=== PATIENT | male | born 1955 | race Caucasian/White ===

== ENCOUNTER → 2017-01-09 | Outpatient (CLI) | payer OTHER | LOC: FIMAGING 09:51 | PROVIDERS: ATTEND Physician Assistant | DX: Z47.89 Encounter for other orthopedic aftercare (principal); Z98.1 Arthrodesis status ==

== ENCOUNTER 2017-05-30 19:45 | Inpatient (IN) | payer OTHER ==
--- NOTE | 2017-05-30 20:31 | EDPHY ---
General Narrative: CHIEF COMPLAINT: Fall from horse, headache, neck pain, wrist pain HISTORY OF PRESENT ILLNESS: Patient reports falling off a horse this afternoon. He landed on the left side of his head. There was a brief loss of consciousness. He has a headache and right-sided neck pain. He also has right wrist pain. All areas are mild-to- moderate. They are worse with movement palpation. He has no nausea or vomiting. No visual disturbance. No chest pain. No back pain. No abdominal pain. No pain in the left arm or the legs. No incontinence of bowel or bladder. No weakness of the lower extremities or upper extremities. Does a history of subdural hematoma last year. Also has a history of cervical discopathy status post laminectomy fusion. No other associated complaints or modifying factors. REVIEW OF SYSTEMS: Ten systems reviewed and are negative unless otherwise noted in the HPI PCP: Dr. Leach SPECIALISTS: Dr. Bolivar PAST MEDICAL HISTORY: Traumatic subdural hematoma, closed head injury, cervical discopathy PAST SURGICAL HISTORY: Cervical laminectomy and fusion 2015 SOCIAL HISTORY: Nonsmoker. No alcohol. No drug use. FAMILY HISTORY: Noncontributory EXAMINATION General Appearance: Alert, no distress Head: normocephalic, superficial abrasion to the left forehead. No Scott sign. No raccoon eyes. No depression. Eyes: Pupils equal and round, no conjunctival pallor or injection. EOMs intact ENT, Mouth: Mucous membranes moist airway patent Neck: C-collar in place. Trachea midline. Respiratory: Lungs are clear to auscultation. No wheeze, rhonchi or crackles Cardiovascular: Regular rate and rhythm. No murmur. Symmetric radial pulses 2 +. Symmetric DP pulses 2+ Gastrointestinal: Abdomen is soft and nontender. No tympany. No rigidity. No distention. No CVA tenderness. Back: No midline tenderness at any level. No crepitus. No step-off. No deformity. Range of motion intact Neurological: GCS 15. Cranial nerves 2-12 grossly intact. A&O, nonfocal, strength is symmetric. Patellar reflexes symmetric. No pronator drift. Normal mental status Skin: Warm and dry, no rash. Superficial abrasion to left forehead. No laceration. Extremities: Tenderness of the right wrist excluding the anatomic snuffbox. No tenderness of the right shoulder, elbow or hand. Range of motion is symmetric in the upper extremities. No bony tenderness of the lower extremities. Range of motion is symmetric in lower extremities. Psychiatric: Mood and affect normal DIFFERENTIAL DIAGNOSES: Including but not limited to closed head injury, subdural hematoma, parenchymal hemorrhage, skull fracture, sprain, strain, contusion, dislocation MDM: 8:31 p.m. Fall from horse with brief loss of consciousness. He does have a headache and right-sided neck pain. C-collar was left in place during my examination. I have ordered CT scans of the head cervical spine. I have ordered chest x-ray and x-ray of the right wrist. He is in no acute distress. Vital signs are stable. He appears to be mentating appropriately. Spouse is not currently bedside but will return shortly. 9:04 p.m. Notified by radiology equipment servicer that there is a C1 fracture. I have reviewed this with Dr. Maya. Neurosurgery will be page. 9:07 p.m. Patient re-evaluated. He just returned from CT scan. We stressed the importance of him holding still not turn his head or neck. He remains neuro intact with complaints of a mild wound "weird sensation" in the left hand I cannot find focally. Will discuss with Trauma surgery, Neurosurgery. Plain films pending. 9:15 a.m. Case discussed with neurosurgeon Dr. Ochoa. We discussed the patient's history and CT scan findings as he is established with him. He will review the scan and call me back. 9:16 p.m. Case discussed with radiologist Dr. Dunaway. There is anterior ring fracture on C1. No 2nd fracture identified. No involvement of the vertebral foramina. 9:20 p.m. Case discussed with trauma surgeon Dr. Yu. He will admit the patient to his service. He will come evaluate the patient in the emergency department. He is requesting orthopedic consultation as the plain film of the wrist shows a distal radius fracture. 9:25 p.m. Case discussed with neurosurgeon Dr. Ochoa. He would like the patient placed in a rigid C-collar from [facility]. He would like an MRI of the cervical spine ordered without contrast. He would like to be notified if there are any abnormalities of the MRI other than the fracture. He requests Q4 neuro checks. He informs me that he will likely see the patient 1st thing in the morning unless there are changes or further abnormality on the MRI. Prescription has been faxed for the C-collar. 10:30 p.m. Patient has been evaluated here in the emergency department by neurosurgeon. He has been evaluated and admitted by trauma surgeon. Orthopedics has been contacted. Dr. Denney recommends sugar-tong splint and he will see the patient in consult tomorrow. I have re-evaluated the patient multiple times within the past hour. He remains neuro intact. C-collar order by Jair has been clarified, and Vidal Mcclure will bring the appropriate C-collar to the emergency department. 11:00 p.m. [place] rigid [place] J C-collar has been placed by [facility]. He remains neuro intact and feeling much more comfortable in this collar pain 11:[address] Dunaway. MRI of the cervical spine reveals no other findings other than the anterior ring fracture of C1. I have re-evaluated the patient. I informed the patient and his spouse of this. They were comforted to hear this. He remains neuro intact at this time. He will be transported to his bed shortly. - Diagnostics Imaging Results: Imaging Impressions Cervical Spine CT 05/30/17 20:32 Impression: 1. C1 ring fracture. Please see the cervical spine CT report. 2. No acute posttraumatic intracranial abnormality identified. 3. No recurrent subdural hematoma. 2. CT Cervical Spine Without Contrast, 20:53 History: Trauma. Fall off horse. Neck pain. History of cervical fusion surgery. Comparison: MRI cervical spine October 22, 2015 Technique: Multislice helical CT through the cervical spine without contrast from the skull base to T1. Soft tissue and bone evaluation is performed. Sagittal and coronal reconstructions are obtained and reviewed. Dose reduction techniques were utilized. Findings: Cervical alignment is anatomic. There is a solitary fracture of the anterior right C1 ring, that extends vertically through the anterior third of the C1 articular pillar. No dislocation is identified. The relationship between skull base and C1 is normal. Occipital condyles are intact. The C1-C2 articulation is normally aligned, but osteoarthritic. The odontoid process is intact. There is anterior spur fusion between C3 and C6. There is no evidence for fusion disruption. There is hypertrophic spurring present involving the posterior superior corner of C4. There is degenerative disk space narrowing at C6-C7, where the disk space is fused. Facet joints are normally aligned. The cervical thoracic junction is normally aligned. Soft tissue window evaluation does not show evidence of epidural or prevertebral hematoma, although there is obscuration related to the orthopedic hardware.. Impression: Right C1 fracture. Retained anatomic alignment. Results discussed with Nitin Quintero at 9:15 PM. Final results are concordant with the initial interpretation. General information for patients regarding this examination can be found at [employer]. If you have questions or comments about this report, please contact me at (hospital) or [phone] (cell). Chest X-Ray 05/30/17 20:32 Impression: Indeterminate age anterior rib buckling. Correlation with any rib cage symptoms is recommended. Otherwise negative. Head CT 05/30/17 20:32 Impression: 1. C1 ring fracture. Please see the cervical spine CT report. 2. No acute posttraumatic intracranial abnormality identified. 3. No recurrent subdural hematoma. 2. CT Cervical Spine Without Contrast, 20:53 History: Trauma. Fall off horse. Neck pain. History of cervical fusion surgery. Comparison: MRI cervical spine October 22, 2015 Technique: Multislice helical CT through the cervical spine without contrast from the skull base to T1. Soft tissue and bone evaluation is performed. Sagittal and coronal reconstructions are obtained and reviewed. Dose reduction techniques were utilized. Findings: Cervical alignment is anatomic. There is a solitary fracture of the anterior right C1 ring, that extends vertically through the anterior third of the C1 articular pillar. No dislocation is identified. The relationship between skull base and C1 is normal. Occipital condyles are intact. The C1-C2 articulation is normally aligned, but osteoarthritic. The odontoid process is intact. There is anterior spur fusion between C3 and C6. There is no evidence for fusion disruption. There is hypertrophic spurring present involving the posterior superior corner of C4. There is degenerative disk space narrowing at C6-C7, where the disk space is fused. Facet joints are normally aligned. The cervical thoracic junction is normally aligned. Soft tissue window evaluation does not show evidence of epidural or prevertebral hematoma, although there is obscuration related to the orthopedic hardware.. Impression: Right C1 fracture. Retained anatomic alignment. Results discussed with Nitin Quintero at 9:15 PM. Final results are concordant with the initial interpretation. General information for patients regarding this examination can be found at [email or web address]. If you have questions or comments about this report, please contact me at [phone] (hospital) or [phone] (cell). Wrist X-Ray 05/30/17 20:32 Impression: Colles' fracture with intra-articular component. - History Smoking Status: Never smoked - Objective Vital Signs: Initial Vital Signs Temperature (C) 98.1 F 05/30/17 19:48 Heart Rate 82 05/30/17 19:48 Respiratory Rate 18 05/30/17 19:48 Blood Pressure 150/115 H 05/30/17 19:48 O2 Sat (%) 95 05/30/17 19:48 O2 Delivery Mode Room Air Allergies/Adverse Reactions: No Known Allergies Allergy (Verified 01/13/16 10:09) Home Medications: Medication Instructions Recorded Modafinil [Provigil] 200 mg PO MOTUWETHFR@09 05/30/17 Phospserin/[place]-3/Dha/Epa 1 each PO DAILY 05/30/17 [Vayacog Capsules] Medications Given: Discontinued Medications Lorazepam (Ativan Injection) 0.5 mg IVP EDNOW ONE Stop: 05/30/17 21:31 Last Admin: 05/30/17 21:39 Dose: 0.5 mg Departure - Departure Disposition: [facility] Acute Clinical Impression: C1 cervical fracture Qualifiers: Encounter type: initial encounter Fracture type: closed Fracture morphology: burst- stable Qualified Code(s): S12.01XA - Stable burst fracture of first cervical vertebra, initial encounter for closed fracture Condition: Good
[2017-05-30] MEDS ORDERED: LORazepam 2 MG/ML INJ IVP ONE (21:30)
[2017-05-30] MEDS ORDERED: LORazepam 2 MG/ML INJ ONE (21:33)
[2017-05-30 21:38] LABS: % IMMATURE GRANULYOCYTES 0.3 % (0.0-1.1); ABSOLUTE IMMATURE GRANULOCYTES 0.03 10^3/uL (0.00-0.10); ADD DIFF? NO; ADD MORPH? NO; ADD SCAN? NO; ATYPICAL LYMPHOCYTE FLAG 0 (0-99); FRAGMENT RBC FLAG 0 (0-99); HEMATOCRIT 46.4 % (40.0-51.0); HEMOGLOBIN 15.9 g/dL (13.7-17.5); LEFT SHIFT FLG 0 (0-99); LIPEMIA HEMOLYSIS FLAG 90 (0-99); MEAN CELL HEMOGLOBIN 28.8 pg (27.9-34.1); MEAN CELL HEMOGLOBIN CONCENTR. 34.3 g/dL (32.4-36.7); MEAN CELL VOLUME 83.9 fL (81.5-99.8); MEAN PLATELET VOLUME 9.5 fL (8.7-11.7); PLATELET CLUMPS FLAG 10 (0-99); PLATELET COUNT 218 10^3/uL (150-400); RED BLOOD CELL COUNT 5.53 10^6/uL (4.40-6.38); RED CELL DISTRIBUTION WIDTH 13.2 % (11.5-15.2)
[2017-05-30 21:50] LABS: APTT 26.3 SEC (23.0-38.0)
[2017-05-30 21:58] LABS: ANION GAP 13 mEq/L (8-16); CALCIUM 9.5 mg/dL (8.5-10.4); CARBON DIOXIDE 24 mEq/l (22-31); CHLORIDE 103 mEq/L (97-110); CREATININE 0.8 mg/dL (0.7-1.3); GLOMERULAR FILTRATION RATE > 60; GLUCOSE 106 mg/dL (70-100); SODIUM 140 mEq/L (134-144)
[2017-05-30 22:00] LABS: INR 0.98 (0.83-1.16); PROTIME(PATIENT) 12.9 SEC (12.0-15.0)
[2017-05-30] MEDS ORDERED: ONDANSETRON 4 MG/2 ML VIAL IVP PRN (22:01)
[2017-05-30] MEDS ORDERED: HYDROmorphone HCL/NS/PF 0.4 MG/2 ML SYR IVP PRN (22:01)
[2017-05-30] MEDS ORDERED: D5W 1/2 NS 1,000 ML IV SCH (22:15)
--- NOTE | 2017-05-30 23:13 | GHP ---
[f rep st] HISTORY AND PHYSICAL DATE OF ADMISSION: 05/30/2017 CHIEF COMPLAINT: Fall from horse. HISTORY OF PRESENT ILLNESS: This is a 62-year-old male who arrives to the emergency department via private vehicle after falling from his horse. 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 His subsequently brought him to the emergency department. Here, in the emergency department he is complaining of right-sided neck pain and right wrist pain, but is otherwise completely neuro intact and without complaint. He is protecting his airway. He is breathing appropriately and his circulation appears intact to all 4 extremities. Briefly, the patient is status post craniotomy in August of 2015 for a subdural after a similar incident after being bucked off a horse. He also is status post anterior cervical fusion of C3 through C6 for chronic cervical stenosis. PAST MEDICAL HISTORY: Cervical stenosis and osteoarthritis as well as hypertension. PAST SURGICAL HISTORY: Bilateral knee arthroscopies, craniotomy for subdural evacuation, and anterior cervical disk fusion C3 through C6. CURRENT MEDICATIONS: Include modafinil and some [id number] neurologic supplement. ALLERGIES: None. FAMILY HISTORY: Noncontributory. SOCIAL HISTORY: On disability from his head injury in 2014. Lives with his . No children. Denies illicit drug use. REVIEW OF SYSTEMS: A full 10-point review was performed and unless stated above , is otherwise negative. PHYSICAL EXAM: VITAL SIGNS: Temperature 36.7, blood pressure 148/103, heart rate 76, and he is 94% on room air. CONSTITUTIONAL: He is in no apparent distress. He is a little anxious but he appears comfortable. EYES: His pupils are equal, round, and reactive to light and accommodation. He has anicteric sclerae with normal extraocular movements. EARS, NOSE, MOUTH, AND THROAT: He has moist mucous membranes. His hearing is normal. He has poor dentition. CARDIOVASCULAR: He is hypertensive with a regular rate and rhythm without murmurs. RESPIRATORY: No respiratory distress. No rales or rhonchi. He is otherwise clear to auscultation without chest tenderness or crepitus. GI : He has normoactive bowel sounds. Abdomen is soft, nondistended, nontender. SKIN: Warm, normal color. No rashes. Abrasions almost throughout his whole body which all appear old. No fluctuance or induration. MUSCULOSKELETAL: He has full muscle strength without tenderness with normal joint range of motion. NEUROLOGIC: He is alert and oriented x3. His cranial nerves 2-12 are intact. He has no weakness, no numbness, and no asterixis. PSYCH: He is interacting appropriately. He is anxious. He is not encephalopathic. His thought process is linear. LYMPH/HEME/IMMUNOLOGIC: He has no cervical, groin or supraclavicular lymphadenopathy appreciated. LABS: Leukocytosis to 11,000. H and H stable. Coags pending, but his PTT is unremarkable. Chemistry at this time is pending. IMAGING: Includes a chest x-ray, a head CT, a C-spine CT, and a wrist x-ray. All these images were personally reviewed. The significant findings include a C1 ring fracture which appears nondisplaced, and a distal radius Colles fracture of the right wrist. ASSESSMENT/PLAN: 62-year-old male, status post fall off horse with C1 ring fracture and distal radius fracture. The patient is completely neuro intact and otherwise stable in the trauma bay. At this point in time, he will subsequently be admitted to the trauma service for monitoring. He has received neurosurgical consultation who evaluated him in the emergency department, as well as orthopedic consultation who will evaluate his right wrist fracture. Will continue to monitor as needed. /[id number]/MODL MTDD
[2017-05-31] MEDS: HYDROCODONE/APAP 5/325 TAB PO PRN ×4 (00:05→22:33)
[2017-05-31] MEDS: DIAZEPAM 5 MG TAB PO PRN ×2 (00:06→22:38)
--- NOTE | 2017-05-31 04:14 | GCON ---
[f rep st] CONSULTATION DATE OF CONSULTATION: 05/30/2017 REASON FOR CONSULTATION: C1 anterior ring fracture, status post fall. HISTORY OF PRESENT ILLNESS: Please note, the patient was seen in the emergency department at [facility] at approximately 9:40 p.m. This is a 62-year-old gentleman, who is well known to me from a prior traumatic brain injury and neck fusion, who states this evening he was riding his horse at the arena when he was suddenly bucked. Leeann guzman was wearing a helmet. His , who accompanies him to the emergency department this evening, did witness this injury, and there was questionable loss of consciousness, but by the time she arrived to the patient's side, he was awake and talking and alert. He was complaining of some right-sided neck pain. No new neurological deficits. He does have some baseline tingling and numbness in his hands from his prior spinal stenosis; however, it is uncertain as to whether this is new or not from his ba seline. He does have a traumatic brain injury. No new shooting pain in the arms or legs. No loss o f bowel or bladder function. He is otherwise very comfortable. No associated headaches or nausea. No diplopia or visual deficits. Denies any chest pain. REVIEW OF SYSTEMS: Complete 10-point Review of Systems from the patient's intake form reviewed by me significant only for those noted above in the HPI. PAST MEDICAL HISTORY: 1. Traumatic subdural hematoma with closed head injury. 2. Cervical stenosis and spondylosis. PAST SURGICAL HISTORY: Anterior cervical diskectomy and fusion C3 through C6 in 2016. SOCIAL HISTORY: The patient is a nonsmoker. Denies any tobacco, alcohol, or other drug use. He is currently on disability from his prior subdural hematoma. FAMILY HISTORY: Negative for any aneurysms. ALLERGIES: No known drug allergies. MEDICATIONS: 1. Tylenol 325 to 650 mg p.o. q.4 hours p.r.n. 2. Modafinil. PHYSICAL EXAMINATION: VITAL SIGNS: Temp is 98.1, heart rate is 82, respiratory rate is 18, blood pr essure is 150/115, saturating 95% currently on room air. GENERAL: Patient is lying in the gurney in a rigid cervical collar with his neck immobilized. HEENT: His head is atraumatic, normocephalic. He is in a rigid cervical collar. Otherwise appears to have appropriate mentation and affect. He john s a small superficial abrasion to the left forehead. Eyes: Pupils are equal, round, and reactive to light bilaterally. Extraocular movements are intact. ENT: Oral mucosa is moist. He has poor dent ition. CARDIOVASCULAR: Deferred. PULMONARY: Deferred. 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 Sensory exam: He has intact sensation to light t ouch throughout all major dermatomes of bilateral upper and lower extremities throughout. Other: He has no Padgett's on the left. Cranial nerves 2-12 appear to be intact. His pupils are equal, round , and reactive to light bilaterally. His extraocular movements are intact. His face is symmetric. Tongue protrudes midline. His palate and uvula elevate symmetrically. He has intact sensation to li ght touch to his face bilaterally, and shoulder shrug is symmetric. He has intact hearing to light c onversation. GCS score of 15. MEDICAL DECISION MAKING: Patient underwent a head CT without contrast completed on May at 8:32 p.m., as well as a cervical spine CT completed at same time and both reviewed by me on the [facility] PACS system. CT of the brain demonstrates no evidence of any midline shif t, mass effect, hydrocephalus, or hemorrhages. There is stable right parietal bone flap in excellent position. No pneumocephalus. Cervical spine CT demonstrates solitary fracture of the anterior righ t ring that extends vertically to the anterior third of the C1 articular pillar with no dislocation. The overall alignment between the skull base, C1, and occipital condyles is intact, as well as the C 1-C2 articulation. Odontoid process is intact. There is anterior cervical fusion hardware between C 3 and C6 with no significant hardware malfunction. ASSESSMENT AND PLAN: The patient is a 62-year-old gentleman, status post prior subdural hematoma wit h evacuation and C3-C6 cervical fusion in 2014 for which he has done otherwise quite well but present s this evening after a fall from a horse with uncertain loss of consciousness. He appears to be neur ologically intact and has a right-sided anterior C1 ring fracture which is nondisplaced in nature. I discussed the treatment options with the patient and his this evening and explained to them binta t likely we can treat this with a rigid cervical collar and immobilization for 3 months. Other treat ment options include halo versus cervical fusion. They are in agreement with the plan for a rigid im mobilization in a cervical collar for now. However, we will obtain a cervical spine MRI scan and fuad ce him in the step-down unit with q.2 hours neuro checks this evening. It is unlikely that he is goi ng to require surgical intervention for this at the moment, and therefore activity can be ad carson exce pt for the rigid cervical collar immobilization and they can allow him to eat. I have discussed with the trauma surgeon and the ER physician, who are both in agreement. All questions were answered. /[id number]/MODL
[2017-05-31] MEDS: IBUPROFEN 600 MG TAB PO SCH ×2 (04:54→14:59)
[2017-05-31 05:02] LABS: HEMATOCRIT 44.3 % (40.0-51.0); HEMOGLOBIN 15.4 g/dL (13.7-17.5); MEAN CELL HEMOGLOBIN 29.4 pg (27.9-34.1); MEAN CELL HEMOGLOBIN CONCENTR. 34.8 g/dL (32.4-36.7); MEAN CELL VOLUME 84.7 fL (81.5-99.8); RED BLOOD CELL COUNT 5.23 10^6/uL (4.40-6.38); RED CELL DISTRIBUTION WIDTH 13.4 % (11.5-15.2)
[2017-05-31 05:33] LABS: ANION GAP 10 mEq/L (8-16); CALCIUM 8.7 mg/dL (8.5-10.4); CARBON DIOXIDE 27 mEq/l (22-31); CHLORIDE 106 mEq/L (97-110); CREATININE 0.7 mg/dL (0.7-1.3); GLOMERULAR FILTRATION RATE > 60; GLUCOSE 108 mg/dL (70-100); POTASSIUM 3.6 mEq/L (3.5-5.2); SODIUM 143 mEq/L (134-144)
--- NOTE | 2017-05-31 07:22 | NEUSURGPN ---
Assessment/Plan: Assessment: 62 yo male that is admitted to trauma with neck and UE injuries after a fall from a horse. Pt with fractured wrist and C1 ring fracture Plan: -C1 fracture noted on MRI and CT-acute in nature -recommend strict collar use -recommend no bending or twisting -images reviewed with Dr Ochoa -defer to trauma/ortho for evaluation and treatment of other injuries -warning signs given -call with any questions or concerns -d/w Dr Ochoa Subjective: Awake and alert. NAD. Eating/drinking and voiding. No f/c/n/v/d. No john/cp/ sob/abd or gu complaints. Objective: AAO x 3, PERRLA/EOMI no droop CN 2-12 grossly intact +lt touch 5/5 BUE/BLE = except unable to test right WE/WF/bi due to splint in place +cms/nv intact x 4 Neuro Check Frequency: per routine Urinary Catheter in Place: No - Physician Discussed Patient with Dr.: Ochoa Neurosurgery Physical Exam - Vitals, I&O, Labs I and O 05/30/17 05/31/17 06/01/17 05:59 05:59 05:59 Intake Total 300 Balance 300 Weight 86.183 kg Intake: Oral (ml) 300 Other: Number of Voids Urinal 0 Vital Signs Temp Pulse Resp BP Pulse Ox 36.5 C 79 16 128/94 H 98 05/31/17 04:00 05/31/17 04:00 05/31/17 04:00 05/31/17 04:00 05/31/17 04:00 Laboratory Results 05/31/17 04:45 05/31/17 04:45 ICD10 Worksheet Patient Problems: Problems Problem Status Onset C1 cervical fracture Acute Subdural hematoma Acute
--- NOTE | 2017-05-31 08:56 | TRAUMAPN ---
- Problem/Surgery Performed (1) Right wrist fracture Assessment/Plan: right Colle's fx with intra-articular extention distal N/V intact Dr. Yu requested ortho consult from Dr. Denney-pending Qualifiers: Encounter type: initial encounter Fracture type: closed Qualified Code(s) : S62.101A - Fracture of unspecified carpal bone, right wrist, initial encounter for closed fracture (2) Lytic lesion of bone on x-ray Assessment/Plan: subtle finding on left olecranon/SPEP pending (3) Hx of traumatic brain injury Assessment/Plan: previous SDH from similar accident 2 years ago with cognitive dysfunction no evidence of recurrent bleed (4) Hx of cervical spine surgery Assessment/Plan: uncomplicated prior fusion on imaging (5) Concussion Assessment/Plan: brief LOC with amnesia for post injury events Qualifiers: Encounter type: initial encounter Loss of consciousness presence/duration: without LOC Qualified Code(s): S06.0X0A - Concussion without loss of consciousness, initial encounter (6) C1 cervical fracture Assessment/Plan: neurologically intact/Dr. Ochoa recommended non-operative management Qualifiers: Encounter type: initial encounter Fracture type: closed Fracture morphology: burst- stable Qualified Code(s): S12.01XA - Stable burst fracture of first cervical vertebra, initial encounter for closed fracture Subjective: awake and alert/appropriately answering questions reports most pain in the right wrist Objective: Vital Signs Temp Pulse Resp BP Pulse Ox 36.6 C 68 16 137/93 H 98 05/31/17 07:26 05/31/17 07:26 05/31/17 07:26 05/31/17 07:26 05/31/17 07:26 Laboratory Results 05/31/17 04:45 05/31/17 04:45 05/30/17 05/31/17 06/01/17 05:59 05:59 05:59 Intake Total 300 Balance 300 PT 12.9 SEC (12.0-15.0) 05/30/17 21:31 INR 0.98 (0.83-1.16) 05/30/17 21:31 - C-Spine Clearance Cervical Spine Cleared: No Physical Exam - Physical Exam General Appearance: alert, mild distress Neck: other (hard collar in place) Respiratory: chest non-tender, lungs clear, normal breath sounds Cardiac/Chest: regular rate, rhythm Peripheral Pulses: 3+: dorsalis-pedis (R), dorsalis-pedis (L) Abdomen: normal bowel sounds, non-tender, soft Extremities: other (right volar splint/distal NV intact/mild tenderness left elbow) Neuro/Psych: no motor/sensory deficits, alert, normal mood/affect, oriented x 3 , other (no focal motor/sensory defecits, DTR's symmetrical) Time Spent w/Patient (minutes): 20
[2017-05-31] MEDS: DHA PO SCH (09:23)
[2017-05-31] MEDS: OMEGA PO SCH (09:23)
[2017-05-31] MEDS: EPA PO SCH (09:23)
[2017-05-31] MEDS: PHOSPSERIN PO SCH (09:23)
[2017-05-31] MEDS: MODAFINIL 100 MG TAB PO SCH (11:36)
--- NOTE | 2017-05-31 16:20 | ASMTCMCOM ---
CM Note CM Note Notes: Pt has wrist fx and C1 fx anterior ring after fall from horse, history of head injury in 2015. 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 Spoke w pt and his mother who report between friends and family pt will be able to have 24 hour care. CM to follow. D/c plan of care: Home w 24/hr care. Date Signed: 05/31/2017 04:19 PM Electronically Signed By:GIO Nair
[2017-05-31] MEDS ORDERED: FLU VACC QS 2017-18 (3YR+)/PF 0.5 ML SYR (FLUARIX QUAD) IM ONE (16:46)
--- NOTE | 2017-06-01 07:59 | SOAPPROG ---
[facility] Progress Note Assessment/Plan: Assessment: Plan: 06/01/17 07:58 RT nondisplaced intraarticular distal radius fx splint ice/elevation F/U [place] 7-10 days with xrays and cast Subjective: feeling pretty good Today pain controlled Objective: RUE splint fitting appropriately moving fingers median nerve sensation intact brisk cap refill all fingers Vital Signs Temp Pulse Resp BP Pulse Ox 37.0 C 69 16 125/87 H 97 06/01/17 03:51 06/01/17 03:51 06/01/17 03:51 06/01/17 03:51 06/01/17 03:51 Laboratory Results 05/31/17 04:45 05/31/17 04:45 05/31/17 06/01/17 06/02/17 05:59 05:59 05:59 Intake Total 300 500 Balance 300 500 PT 12.9 SEC (12.0-15.0) 05/30/17 21:31 INR 0.98 (0.83-1.16) 05/30/17 21:31 ICD10 Worksheet Patient Problems: Problems Problem Status Onset C1 cervical fracture Acute Concussion Acute Hx of cervical spine surgery Acute Hx of traumatic brain injury Acute Lytic lesion of bone on x-ray Acute Right wrist fracture Acute Subdural hematoma Acute
[2017-06-01] MEDS: MODAFINIL 100 MG TAB PO SCH (08:13)
[2017-06-01] MEDS: HYDROCODONE/APAP 5/325 TAB PO PRN ×2 (08:13→15:07)
[2017-06-01] MEDS: EPA PO SCH (08:27)
[2017-06-01] MEDS: PHOSPSERIN PO SCH (08:27)
[2017-06-01] MEDS: OMEGA PO SCH (08:27)
[2017-06-01] MEDS: DHA PO SCH (08:27)
--- NOTE | 2017-06-01 08:32 | TRAUMAPN ---
- Problem/Surgery Performed (1) C1 cervical fracture Assessment/Plan: Rigid collar at all times Follow up with Dr. Ochoa in 6 weeks with x ray NSG has signed off but available Qualifiers: Encounter type: initial encounter Fracture type: closed Fracture morphology: burst- stable Qualified Code(s): S12.01XA - Stable burst fracture of first cervical vertebra, initial encounter for closed fracture (2) Right wrist fracture Assessment/Plan: Appreciate Dr. Denney seeing for nondisplaced intraarticular distal fracture. Splint in good position. F/U with Dr. Denney in 7 days with x rays and cast Qualifiers: Encounter type: initial encounter Fracture type: closed Qualified Code(s) : S62.101A - Fracture of unspecified carpal bone, right wrist, initial encounter for closed fracture (3) Lytic lesion of bone on x-ray Assessment/Plan: Following up on SPEP Assessment/Plan: 62 year old s/p fall from horse History of SDH s/p evacuation Regular diet Pain controlled Gave him contact information for 2nd opinion primary care Will discuss with PT/OT and ST. Will likely be able to discharge home. Lives with . Sister in law can stay with him Subjective: Pain controlled Concerned about lesion on elbow. Feels like something is overall wrong with him for years Objective: Vital Signs Temp Pulse Resp BP Pulse Ox 36.8 C 82 16 143/95 H 89 L 06/01/17 08:00 06/01/17 08:00 06/01/17 08:00 06/01/17 08:00 06/01/17 08:00 Laboratory Results 05/31/17 04:45 05/31/17 04:45 05/31/17 06/01/17 06/02/17 05:59 05:59 05:59 Intake Total 300 500 Balance 300 500 PT 12.9 SEC (12.0-15.0) 05/30/17 21:31 INR 0.98 (0.83-1.16) 05/30/17 21:31 - C-Spine Clearance Cervical Spine Cleared: No Physical Exam - Physical Exam General Appearance: WD/WN, alert, no apparent distress EENT: PERRL/EOMI, normal ENT inspection, No scleral icterus (R), No scleral icterus (L), No hearing deficit Neck: other (aspen collar) Respiratory: chest non-tender, lungs clear, normal breath sounds Cardiac/Chest: regular rate, rhythm, No edema Abdomen: normal bowel sounds, non-tender, soft Skin: normal color, warm/dry Extremities: normal range of motion, other (Right arm in splint. Moves all fingers well. Appears to be in appropriate position ) Neuro/Psych: no motor/sensory deficits, alert, normal mood/affect
[2017-06-01 11:30] VITALS: BP 134/82; PULSE 100; RESP 18; TEMP 98.7; O2SAT 92
--- NOTE | 2017-06-01 12:37 | PDIAF ---
- Diagnosis Diagnosis: C1 fracture and r wrist fracture Code Status: Full Code - Medication Management Discharge Medications: Medications to Continue on Transfer Modafinil [Provigil] 200 mg PO MOTUWETHFR@09 05/30/17 [Last Taken 05/30/17] Phospserin/[place]-3/Dha/Epa [Vayacog Capsules] 1 each PO DAILY 05/30/17 [Last Taken 05/30/17] Diazepam [Valium 5 MG (*)] 5 mg PO Q6HRS PRN #30 tab 06/01/17 [Last Taken Unknown] Hydrocodone/APAP 5/325 [[place] 5/325 (*)] 1 - 2 tab PO Q6HRS PRN #30 tab [Last Taken Unknown] Discharge Medications: Refer to the Discharge Home Medication list for PRN reason. - Orders Services needed: Home Care, Registered Nurse Home Care Face to Face: I certify that this patient was under my care and that I had the required [id number] encounter meeting the encounter requirements on the discharge day. My findings support the fact that the patient is homebound as defined in Home Care Face to Face Continued: CMS Chapter 7 Medicare Benefits Manual 30.1.1 , The condition of the patient is such that there exists a normal inability to leave home and consequently, leaving home would require a considerable and taxing effort. Diet Recommendation: no restrictions on diet Activity/Weight Bearing Restrictions: Wear c collar at all times. Right wrist splint. Non weight bearing right arm - Follow Up Care Current Providers and Referrals: Nahum Denney MD [Medical Doctor] - follow up in 1 week (call for appointment. Dr. Denney would like to see you before thanksgiving for x rays and a cast) YARA GOMEZ [Primary Care Provider] - As per Instructions Aminah Nicolas DO [Doctor of Osteopathy] - (second opinion primary care if you desire. You can see anyone in this practice) Adryan Ochoa MD [Medical Doctor] - (follow up in 6 weeks with xrays)
--- NOTE | 2017-06-01 14:32 | GCON ---
[f rep st] CONSULTATION ORTHOPEDIC CONSULTATION. DATE OF CONSULTATION: 06/01/2017 REASON FOR CONSULTATION: Right distal radius fracture. HISTORY OF PRESENT ILLNESS: The patient is a pleasant 62-year-old gentleman who fell off his horse o n the evening of May 30. He sustained a nondisplaced C1 fracture as well as a distal radius f racture on the right. Right wrist was splinted in the emergency department. Dr. Ochoa is managing the C1 fracture with rigid cervical collar. Of note, he has had a previous traumatic injury to his n daniel and a subdural hematoma after a fall from a horse several years ago. He did require cervical fus ion, and this was done by Dr. Ochoa, as well. PRIOR MEDICAL HISTORY: 1. Traumatic subdural hematoma with a closed head injury. 2. Cervical stenosis. PRIOR SURGICAL HISTORY: Anterior cervical diskectomy and fusion, C3 through C6, in 2016. SOCIAL HISTORY: [place]. He does not smoke; no tobacco. He is on disability fro m his prior head injury. MEDICATIONS: Modafinil and Tylenol. ALLERGIES: No known drug allergies. PHYSICAL EXAMINATION: GENERAL: He is wearing a rigid cervical collar. He is alert, oriented x3. An swers questions appropriately. VITAL SIGNS: This morning, blood pressure 125/87, heart rate 69, res piratory rate 16, oxygen saturation 97% on 2 L nasal cannula. HEENT: Extraocular muscles are intact . MUSCULOSKELETAL: Right upper extremity is in a sugar-tong splint above the elbow and is fitting appr opriately. He is moving his fingers well and there is only mild edema in the fingers. Sensation to the median nerve is intact. Brisk cap refill to all fingers. IMAGING: X-rays, 3 views of the wrist, taken on the are reviewed. They show a distal radius fr acture with a small intra-articular split that is nondisplaced. There is some mild carpal arthritis, otherwise satisfactory alignment of the fracture. ASSESSMENT: Nondisplaced intraarticular distal radius fracture right. PLAN: The patient and I spent 15 minutes reviewing exam findings as well as x-ray findings. The fra cture is lined up nicely. We will need to keep a close eye on this. I did explain there is a slight chance this could shift over the next couple weeks, and that would necessitate fixation; however, th is most likely will be able to be treated successfully with cast immobilization for the 1st 6 weeks f ollowed by 6 weeks of removable splint immobilization. He will require some physical therapy. We ta lked a little bit about managing his horse; he is going to have to use some extra caution with that. He understands that. I will see him back in the office in a week to 10 days for x-rays and cast fuad cement. /[id number]/MODL
--- NOTE | 2017-06-02 14:21 | ASDISCHSUM ---
Discharge Information Plan Status:Home with Home Health Medically Cleared to Leave: Discharge Date:06/01/2017 04:44 PM CM D/C Disposition:Home Health Service ADT D/C Disposition:Home Health Service Projected Discharge Date:06/01/2017 11:00 AM Transportation at D/C: Discharge Delay Reason: Follow-Up Date:06/01/2017 11:00 AM Discharge Slot: Final Diagnosis: Placement Information Referral Type:*Home Health Care Services Referral ID:[id number] Provider Name:[facility] Address 1:[address] [address] Address 2: City:[place] Selection Factors: State:[place] Patient Contact Information Contact Name:CARMITA Relationship: Address:[address] City:[place] Alternate Phone: State/Zip Code:[place] [address] Email: Financial Information Financial Class:HMO and PPO Plans Primary Plan Desc:[employer] Primary Plan Number:[id number] Secondary Plan Desc: Secondary Plan Number: Assessment Information [facility] CM Progress Note CM Note CM Note Notes: Pt has wrist fx and C1 fx anterior ring after fall from horse, history of head injury in 2015. 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 Spoke w pt and his mother who report between friends and family pt will be able to have 24 hour care. CM to follow. D/c plan of care: Home w 24/hr care. Date Signed: 05/31/2017 04:19 PM Electronically Signed By:GIO Nair Case Management Discharge Plan Note Case Management Discharge Discharge Order Complete? Answers: Yes Patient to Obtain Answers: Independently Medications Transportation Arranged Answers: Family/Friends Faxed Final Orders Answers: Yes Family Notified Answers: Yes Discharge Comments Notes: Patient discharged to home with 24 hour supervision and home PT. [facility] is accepting home care agency and has all necessary paperwork. His will transport him home. Date Signed: 06/01/2017 03:51 PM Electronically Signed By:Lacey Cote RN Intervention Information
--- NOTE | 2017-06-03 13:02 | GDS ---
[f rep st] DISCHARGE SUMMARY ADMITTING DIAGNOSIS: Burst fracture of cervical vertebrae. SECONDARY DIAGNOSES: 1. Hypertension. 2. History of subdural hematoma, status post evacuation. 3. Cervical stenosis and spondylosis. REASON FOR ADMISSION: Observation and specialty consultation. HOSPITAL COURSE: The patient was admitted on May 30, 2017 from the emergency department after f alling from his horse. The patient sustained a C1 burst fracture and right distal radius fracture. The patient was admitted and evaluated by both Neurosurgery and Orthopedics. Neurosurgery recommende d nonoperative management with rigid C-collar, found no new neurological deficits. Orthopedics splin silke patient's right wrist, with plan to apply a cast as an outpatient in 7-10 days. Patient was also found to have lytic lesion of bone on elbow x-ray. Following up on serum protein electrophoresis. The patient was cleared by both Neurosurgery and Orthopedics for outpatient management. DISCHARGE CONDITION: Patient is stable. To remain in rigid C-collar at all times. Right wrist curr ently in splint with instructions for nonweightbearing to the right arm. DISCHARGE INSTRUCTIONS: 1. Follow up with Dr. Ochoa in 6 weeks for a repeat cervical spine x-ray. 2. Follow up with Dr. Denney in 7-10 days for repeat right wrist x-ray and casting. 3. Follow up with primary care provider Dr. Leach or Dr. Nicolas. DISCHARGE MEDICATIONS: 1. Diazepam 5 mg p.o. q.6 hours as needed for anxiety, #30 no refills. 2. Hydrocodone 5/325 mg 1-2 tabs p.o. q.6 hours as needed for pain, #30 no refills. 3. To continue home medications modafinil and the omega-3 supplement. /[id number]/MODL
== END 2017-06-01 16:44 | disposition home health service (06) | DRG 552 ==
LOC: F3N 05-31
PROVIDERS: ADMIT Surgery; ATTEND Surgery
DX: S12.091A Other nondisplaced fracture of first cervical vertebra, initial encounter for closed fracture (principal); S52.531A Colles' fracture of right radius, initial encounter for closed fracture; S06.0X1A Concussion with loss of consciousness of 30 minutes or less, initial encounter; V80.918A Animal-rider injured in other transport accident, initial encounter; Y93.52 Activity, horseback riding; Y99.8 Other external cause status; Z98.1 Arthrodesis status; I10 Essential (primary) hypertension; Z23 Encounter for immunization
CPT/HCPCS: 92523-GN; 96374; 97116-GP; 97161-GP; 97165-GO; G0008; J1170; J2060; L0172

== ENCOUNTER → 2017-08-14 | Outpatient (CLI) | payer OTHER | LOC: FIMAGING 10:36 | PROVIDERS: ATTEND Physician Assistant | DX: M48.02 Spinal stenosis, cervical region (principal); M25.78 Osteophyte, vertebrae; Z87.81 Personal history of (healed) traumatic fracture ==

== ENCOUNTER → 2017-10-24 | Outpatient (CLI) | payer OTHER | LOC: FIMAGING 09:25 | PROVIDERS: ATTEND Physician Assistant | DX: S52.531D Colles' fracture of right radius, subsequent encounter for closed fracture with routine healing (principal); M18.11 Unilateral primary osteoarthritis of first carpometacarpal joint, right hand ==